=== PATIENT | female | born 1940 | race Asian ===

== ENCOUNTER 2022-06-26 04:02 | Day surgery (SDC) | payer OTHER ==
[2022-06-22 10:57] VITALS: BMI 20.7
[~2022-06-26 04:02] MED LIST: LIDOCAINE 1% P/F 10 MG/ML VIAL PNB ONE
[2022-06-26] MEDS ORDERED: LIDOCAINE HCL/PF 1% SDV 5ML VIAL ONE ×2 (08:03→08:04)
[2022-06-26] MEDS ORDERED: BUPIVACAINE HCL/PF 0.25% (2.5MG/ML) 10 ML VIAL ONE (08:03)
[2022-06-26] MEDS ORDERED: BETAMET ACET/BETAMET NA PH 30 MG/5 ML VIAL ONE (08:03)
[2022-06-26] MEDS ORDERED: DEXAMETHASONE SOD PHOSPHATE 10 MG/1 ML VIAL ONE (09:54)
[2022-06-26] MEDS ORDERED: DEXAMETHASONE SOD PHOSPHATE 10 MG/1 ML VIAL IVPUSH ONE (09:58)
[2022-06-26] MEDS ORDERED: BUPIVACAINE HCL/PF 0.25% (2.5MG/ML) 10 ML VIAL IJ ONE (09:58)
[2022-06-26] MEDS ORDERED: LIDOCAINE 1% P/F 10 MG/ML VIAL PNB ONE (09:58)
[2022-06-26] MEDS ORDERED: IOHEXOL 180 MG/1 ML ML IJ ONE (09:58)
[2022-06-26] MEDS ORDERED: LIDOCAINE HCL/PF 2% SDV 5ML VIAL ONE ×3 (10:29→11:01)
[2022-06-26 12:21] VITALS: RESP 17
[2022-06-26 12:48] VITALS: BP 151/64; PULSE 88; TEMP 98.3
== END 2022-06-26 11:58 | disposition home or self-care (01) ==
LOC: JASU-SURG 04:02
PROVIDERS: ATTEND Physical Medicine & Rehabilitation
PROC: 3E0R3BZ Introduction of Anesthetic Agent into Spinal Canal, Percutaneous Approach (ICD-10-PCS; 2022-06-26)
PROC: 3E0R33Z Introduction of Anti-inflammatory into Spinal Canal, Percutaneous Approach (ICD-10-PCS; principal; 2022-06-26 09:30)
DX: M54.16 Radiculopathy, lumbar region (principal); M54.50 Low back pain, unspecified
CPT/HCPCS: 76000-TC-FY; J1100

== ENCOUNTER 2023-06-05 11:46 | Observation (INO) | payer OTHER ==
[2023-06-05 12:00] VITALS: BMI 21.1
[2023-06-05] MEDS ORDERED: ACETAMINOPHEN INJECTION 100 ML IVPB ONE (13:04)
[2023-06-05] MEDS ORDERED: METOCLOPRAMIDE HCL INJECTION 10 MG/2 ML VIAL ONE (13:04)
[2023-06-05 13:14] LABS: BASO % 0.6 % (0-2.0); EOS % 0.8 % (0-4.5); HEMATOCRIT 32.4 % (32.4-45.2); MCH 30.4 pg (25.7-33.7); MEAN CELL VOLUME 89.3 fl (80-96); MEAN PLT VOLUME 6.9 fl (7.5-11.1); NEUT % 61.6 % (42.8-82.8); PLATELET COUNT 320 10^3/uL (134-434); RBC 3.63 M/mm3 (3.60-5.2); RDW 15.4 % (11.6-15.6); WHITE BLOOD COUNT 6.3 K/mm3 (4.0-10.0)
[2023-06-05] MEDS: SODIUM CHLORIDE 0.9% 500 ML INFUS.BAG IV ONE (13:15)
[2023-06-05] MEDS: ACETAMINOPHEN 1000 MG/100 ML BAG IVPB ONE (13:15)
[2023-06-05 13:34] LABS: POTASSIUM 4.7 mmol/L (3.5-5.1)
[2023-06-05 13:37] LABS: CALCIUM 8.4 mg/dL (8.5-10.1)
[2023-06-05 13:38] LABS: ALBUMIN 3.1 g/dl (3.4-5.0)
[2023-06-05 13:39] LABS: MAGNESIUM 2.5 mg/dL (1.8-2.4)
[2023-06-05 13:40] LABS: CREATININE 0.6 mg/dL (0.55-1.3)
[2023-06-05 13:41] LABS: PHOSPHOROUS 2.6 mg/dL (2.5-4.9)
[2023-06-05 13:42] LABS: BILIRUBIN,TOTAL 0.5 mg/dL (0.2-1)
[2023-06-05] MEDS: ONDANSETRON 4 MG/2 ML VIAL IVPUSH ONE (13:44)
[2023-06-05] MEDS: METOCLOPRAMIDE HCL INJECTION 10 MG/2 ML VIAL IVPB ONE (13:44)
[2023-06-05 13:54] LABS: EPI CELLS 8 /uL (0-25.1); HYALINE CASTS 0 /uL (0-3.1); URINE APPEARANCE CLOUDY; URINE BACTERIA 3423 /uL (0-1359); URINE BILIRUBIN NEGATIVE (NEGATIVE); URINE COLOR YELLOW; URINE GLUCOSE (UA) NEGATIVE (NEGATIVE); URINE KETONE TRACE (NEGATIVE); URINE LEUK ESTERASE 2+ (NEGATIVE); URINE NITRITE POSITIVE (NEGATIVE); URINE PROTEIN NEGATIVE (NEGATIVE); URINE RBC 158 /uL (0-23.9); URINE WBC 2527 /uL (0-25.8)
[2023-06-05] MEDS ORDERED: CEFTRIAXONE 1 GM/50 ML BAG ONE (14:16)
[2023-06-05] MEDS: CEFTRIAXONE 1,000 MG in DEXTROSE 5%-WATER - 50 ML IVPB ONE (14:21)
[2023-06-05] MEDS: morphine SULFATE 4 MG/ML VIAL IVPUSH ONE (16:15)
[2023-06-05] MEDS ORDERED: ALBUTEROL SO4 0.083% IH SOL 2.5 MG/3 ML VIAL.NEB. NEB PRN (18:16)
[2023-06-05] MEDS ORDERED: ACETAMINOPHEN 1000 MG/100 ML BAG IVPB PRN (18:23)
[2023-06-05] MEDS ORDERED: PANTOPRAZOLE SODIUM 40 MG/100 ML BAG IVPB ONE (18:29)
[2023-06-05] MEDS: DEXAMETHASONE SOD PHOSPHATE 10 MG/1 ML VIAL IM ONE (18:36)
[2023-06-05] MEDS: PANTOPRAZOLE SODIUM 40 MG VIAL IVPUSH SCH (18:36)
[2023-06-05] MEDS: D5-1/2NS+20 MEQ KCL - 20 MEQ/1,000 ML INFUS.BAG IV SCH (19:03)
[2023-06-05] MEDS ORDERED: METOCLOPRAMIDE HCL INJECTION 10 MG/2 ML VIAL IVPUSH PRN (20:00)
[2023-06-05] MEDS ORDERED: oxyCODONE HCL 5 MG TABLET ONE (21:56)
[2023-06-05] MEDS: oxyCODONE HCL 5 MG TABLET PO PRN (21:59)
[2023-06-05] MEDS ORDERED: PATIENT'S OWN MEDICATION (NON-FORMULARY) (Cyclosporine [Restasis] 1 EACH Droperette) OP SCH (22:00)
[2023-06-05] MEDS ORDERED: ATORVASTATIN CA 40 MG TABLET (FP) ONE (22:01)
[2023-06-05] MEDS ORDERED: clonazePAM 0.5 MG TABLET ONE (22:01)
[2023-06-05] MEDS: VERAPAMIL HCL 40 MG TABLET PO SCH (22:34)
[2023-06-05] MEDS: clonazePAM 0.5 MG TABLET PO SCH (22:34)
[2023-06-05] MEDS: ATORVASTATIN CA 40 MG TABLET (FP) PO SCH (22:34)
[2023-06-05] MEDS: DULoxetine HCL 20 MG CAPSULE.DR PO SCH (22:34)
[2023-06-06] MEDS ORDERED: oxyCODONE HCL 5 MG TABLET ONE ×2 (04:05→04:48)
[2023-06-06 05:54] LABS: BASO % 0.3 % (0-2.0); HEMATOCRIT 30.9 % (32.4-45.2); HEMOGLOBIN 10.1 GM/dL (10.7-15.3); LYMPH % 13.1 % (8-40); MCH 29.8 pg (25.7-33.7); MCHC 32.7 g/dl (32.0-36.0); MEAN CELL VOLUME 90.9 fl (80-96); MEAN PLT VOLUME 7.3 fl (7.5-11.1); MONO % 3.1 % (3.8-10.2); NEUT % 83.5 % (42.8-82.8); PLATELET COUNT 310 10^3/uL (134-434); WHITE BLOOD COUNT 4.2 K/mm3 (4.0-10.0)
[2023-06-06 06:29] LABS: MAGNESIUM 2.2 mg/dL (1.8-2.4)
[2023-06-06] MEDS ORDERED: ENOXAPARIN NA (PORCINE) 30 MG/0.3 ML DISP.SYRIN SQ ONE (09:42)
[2023-06-06] MEDS ORDERED: clonazePAM 0.5 MG TABLET ONE (09:42)
[2023-06-06] MEDS ORDERED: ASPIRIN COATED 81 MG TABLET.EC ONE (09:42)
[2023-06-06] MEDS ORDERED: CEFTRIAXONE 1 GM/50 ML BAG ONE (09:43)
[2023-06-06] MEDS ORDERED: PANTOPRAZOLE SODIUM 40 MG VIAL ONE (09:43)
[2023-06-06] MEDS ORDERED: metoPROLOL SUCCINATE 25 MG TAB.SR.24H (FP) PO SCH (10:00)
[2023-06-06] MEDS ORDERED: LOSARTAN POTASSIUM 50 MG TABLET PO SCH (10:00)
[2023-06-06] MEDS ORDERED: DULOXETINE HCL 20 MG PO SCH (10:00)
[2023-06-06] MEDS: ASPIRIN COATED 81 MG TABLET.EC PO SCH (10:23)
[2023-06-06] MEDS: ENOXAPARIN NA (PORCINE) 30 MG/0.3 ML DISP.SYRIN SQ SCH (10:24)
[2023-06-06] MEDS: CEFTRIAXONE 1 GM in DEXTROSE 5%-WATER - 50 ML IVPB SCH (10:25)
[2023-06-06] MEDS: prednisoLONE ACETATE 1% OPHTH SUSP 5 ML BOTTLE OD SCH (12:22)
[2023-06-06] MEDS: FLUTICASONE/UMECLIDIN/VILANTER(100-62.5-25 TRELEGY ELLIPTA) INAHLER IH SCH (12:23)
[2023-06-06] MEDS: EZETIMIBE 10 MG TABLET (FP) PO SCH (12:23)
[2023-06-06] MEDS ORDERED: ONDANSETRON *ODT* 4 MG TABLET SL PRN (14:26)
[2023-06-06] MEDS ORDERED: METOCLOPRAMIDE HCL INJECTION 10 MG/2 ML VIAL ONE (14:47)
[2023-06-06] MEDS ORDERED: MAGNESIUM SULFATE IN WATER 2 GM/50 ML IVPB IVPB ONE (14:48)
[2023-06-06] MEDS: MAGNESIUM SULF 50% (8.12 MEQ/2 ML-1 GM VIAL) IVPB ONE (16:04)
[2023-06-06] MEDS ORDERED: KETOROLAC TROMETHAMINE 30 MG/1 ML VIAL IVPUSH PRN (16:36)
[2023-06-06] MEDS: QUEtiapine FUMARATE 25 MG TABLET PO SCH (21:38)
[2023-06-06] MEDS: VALPROATE SODIUM INJECTION 500 MG in SODIUM CHLORIDE 100 ML IVPB SCH (21:56)
[2023-06-06] MEDS ORDERED: QUEtiapine FUMARATE 25 MG TABLET PO SCH (22:00)
[2023-06-06] MEDS ORDERED: VALPROATE SODIUM 500 MG/5 ML VIAL IVPB SCH (22:00)
[2023-06-07 06:56] VITALS: BP 143/80; PULSE 104; RESP 20; TEMP 98.1
[2023-06-07 08:31] LABS: HEMATOCRIT 32.1 % (32.4-45.2); HEMOGLOBIN 10.8 GM/dL (10.7-15.3); MCH 30.1 pg (25.7-33.7); MCHC 33.6 g/dl (32.0-36.0); MEAN CELL VOLUME 89.6 fl (80-96); MEAN PLT VOLUME 7.1 fl (7.5-11.1); PLATELET COUNT 324 10^3/uL (134-434); RBC 3.58 M/mm3 (3.60-5.2); RDW 15.2 % (11.6-15.6); WHITE BLOOD COUNT 7.8 K/mm3 (4.0-10.0)
[2023-06-07 09:02] LABS: POTASSIUM 3.9 mmol/L (3.5-5.1)
[2023-06-07 09:09] LABS: CALCIUM 8.6 mg/dL (8.5-10.1)
[2023-06-07 09:10] LABS: ALBUMIN 3.2 g/dl (3.4-5.0); BLOOD UREA NITROGEN 11.8 mg/dL (7-18); MAGNESIUM 2.1 mg/dL (1.8-2.4)
[2023-06-07 09:13] LABS: CREATININE 0.7 mg/dL (0.55-1.3)
[2023-06-07 09:14] LABS: TOT PROT 6.2 g/dl (6.4-8.2)
[2023-06-07 09:15] LABS: BILIRUBIN,TOTAL 0.3 mg/dL (0.2-1)
== END 2023-06-07 14:37 | disposition home or self-care (01) ==
LOC: JER 11:46 → UNDOADMOB 16:01 → JERBED 16:01 → INTOOBSV 18:16 → OBSVTOIN 18:16 → J5S 06-06 15:27 → JERBED 06-06 15:27 → J5S 06-06 16:22
PROVIDERS: ADMIT Family Medicine; ATTEND Family Medicine
PROC: 3E033NZ Introduction of Analgesics, Hypnotics, Sedatives into Peripheral Vein, Percutaneous Approach (ICD-10-PCS; principal; 2023-06-06)
PROC: 3E03329 Introduction of Other Anti-infective into Peripheral Vein, Percutaneous Approach (ICD-10-PCS; 2023-06-06)
PROC: 3E023GC Introduction of Other Therapeutic Substance into Muscle, Percutaneous Approach (ICD-10-PCS; 2023-06-06)
PROC: 3E033GC Introduction of Other Therapeutic Substance into Peripheral Vein, Percutaneous Approach (ICD-10-PCS; 2023-06-06)
PROC: 3E0337Z Introduction of Electrolytic and Water Balance Substance into Peripheral Vein, Percutaneous Approach (ICD-10-PCS; 2023-06-06)
DX: G43.911 Migraine, unspecified, intractable, with status migrainosus (principal); N32.81 Overactive bladder; F41.9 Anxiety disorder, unspecified; R26.2 Difficulty in walking, not elsewhere classified; Z87.891 Personal history of nicotine dependence; J44.9 Chronic obstructive pulmonary disease, unspecified; E78.00 Pure hypercholesterolemia, unspecified; I87.2 Venous insufficiency (chronic) (peripheral); M54.16 Radiculopathy, lumbar region
CPT/HCPCS: 0241U-QW; 36415; 70450-TC; 76705-TC; 80053; 81003; 82962; 83605; 83690; 83735; 84100; 84443; 84484; 85025; 85027; 86140; 87086; 93005; 93010; 96361; 96365; 96366; 96372; 96375; 99285-25; G0378; J0131; J1100

== ENCOUNTER 2024-02-28 14:25 | Inpatient (IN) | payer OTHER ==
[2024-02-28 16:15] LABS: BASO % 0.3 % (0-2.0); EOS % 0.7 % (0-4.5); HEMATOCRIT 34.6 % (32.4-45.2); HEMOGLOBIN 11.5 GM/dL (10.7-15.3); LYMPH % 17.9 % (8-40); MCHC 33.1 g/dl (32.0-36.0); MEAN CELL VOLUME 87.6 fl (80-96); MEAN PLT VOLUME 7.5 fl (7.5-11.1); MONO % 8.3 % (3.8-10.2); NEUT % 72.8 % (42.8-82.8); PLATELET COUNT 273 10^3/uL (134-434); RBC 3.95 M/mm3 (3.60-5.2); RDW 16.1 % (11.6-15.6); WHITE BLOOD COUNT 6.2 K/mm3 (4.0-10.0)
[2024-02-28 16:30] LABS: ALBUMIN 3.6 g/dl (3.4-5.0); BLOOD UREA NITROGEN 6.6 mg/dL (7-18); CALCIUM 9.3 mg/dL (8.5-10.1)
[2024-02-28 16:31] LABS: MAGNESIUM 2.3 mg/dL (1.8-2.4)
[2024-02-28 16:33] LABS: CREATININE 0.6 mg/dL (0.55-1.3)
[2024-02-28 16:35] LABS: BILIRUBIN,TOTAL 0.5 mg/dL (0.2-1); INR 0.99 (0.83-1.09); PROTHROMBIN TIME (PATIENT) 11.4 SEC (9.7-13.0); TOT PROT 6.7 g/dl (6.4-8.2)
[2024-02-28 17:12] LABS: PH,URINE 6.5 (5.0-8.0); URINE APPEARANCE CLEAR; URINE BILIRUBIN NEGATIVE (NEGATIVE); URINE COLOR YELLOW; URINE GLUCOSE (UA) NEGATIVE (NEGATIVE); URINE KETONE NEGATIVE (NEGATIVE); URINE LEUK ESTERASE 2+ (NEGATIVE); URINE NITRITE NEGATIVE (NEGATIVE); URINE PROTEIN NEGATIVE (NEGATIVE); URINE UROBILINOGEN 0.2 mg/dL (0.2-1.0)
[2024-02-28 17:30] LABS: EPI CELLS 5.2 /uL (0-25.1); HYALINE CASTS 0.13 /uL (0-3.1); URINE RBC 17.8 /uL (0-23.9); URINE WBC 48.8 /uL (0-25.8)
[2024-02-28] MEDS ORDERED: ALBUTEROL SULFATE 2 MG/5 ML SOLUTION PO PRN (18:21)
[2024-02-28] MEDS ORDERED: ALBUTEROL SO4 0.083% IH SOL 2.5 MG/3 ML VIAL.NEB. NEB PRN (18:21)
[2024-02-28] MEDS ORDERED: ALBUTEROL SULFATE 90 MCG IH PRN (18:21)
[2024-02-28] MEDS ORDERED: POLYETHYLENE GLYCOL 3350 255 GM BTL PO PRN (18:21)
[2024-02-28] MEDS: PATIENT'S OWN MEDICATION (NON-FORMULARY) (Denosumab 60 MG/ML Disp.Syrin) SQ SCH (20:14)
[2024-02-28] MEDS ORDERED: CEFTRIAXONE 1 G/50 ML PREMIX 50 ML IVPB ONE (20:15)
[2024-02-28] MEDS: CEFTRIAXONE 1,000 MG in DEXTROSE 5%-WATER - 50 ML IVPB ONE (20:26)
[2024-02-28] MEDS ORDERED: ATORVASTATIN CA 40 MG TABLET (FP) ONE (21:21)
[2024-02-28] MEDS ORDERED: PANTOPRAZOLE 40 MG TABLET PO ONE (21:21)
[2024-02-28] MEDS ORDERED: clonazePAM 0.5 MG TABLET ONE (21:21)
[2024-02-28] MEDS ORDERED: LOSARTAN POTASSIUM 50 MG TABLET ONE (21:21)
[2024-02-28] MEDS: LOSARTAN POTASSIUM 50 MG TABLET PO SCH (21:44)
[2024-02-28] MEDS: PATIENT'S OWN MEDICATION (NON-FORMULARY) (Cyclosporine [Restasis] 1 EACH Droperette) OU SCH (21:44)
[2024-02-28] MEDS: ATORVASTATIN CA 40 MG TABLET (FP) PO SCH (21:44)
[2024-02-28] MEDS: clonazePAM 0.5 MG TABLET PO SCH (21:44)
[2024-02-28] MEDS: PANTOPRAZOLE 40 MG TABLET PO ONE (21:44)
[2024-02-28] MEDS ORDERED: FLUTICASONE/UMECLIDIN/VILANTER(100-62.5-25 TRELEGY ELLIPTA) INAHLER IH SCH (22:53)
[2024-02-29] MEDS: FLUTICASONE/UMECLIDIN/VILANTER(100-62.5-25 TRELEGY ELLIPTA) INAHLER IH SCH (00:33)
[2024-02-29] MEDS: ACETAMINOPHEN 1000 MG/100 ML BAG IVPB ONE (03:48)
[2024-02-29] MEDS ORDERED: FLUTICASONE/UMECLIDIN/VILANTER(100-62.5-25 TRELEGY ELLIPTA) INAHLER IH SCH (10:00)
[2024-02-29] MEDS: ROFLUMILAST 500 MCG TABLET PO SCH (11:07)
[2024-02-29] MEDS: CALCIUM 500MG/VIT-D 200 UNITS COMBO TABLET (FP) PO SCH (11:08)
[2024-02-29] MEDS: metoPROLOL SUCCINATE 25 MG TAB.SR.24H (FP) PO SCH (11:08)
[2024-02-29] MEDS: EZETIMIBE 10 MG TABLET (FP) PO SCH (11:08)
[2024-02-29] MEDS: LOPERAMIDE HCL 2 MG CAPSULE PO SCH (11:08)
[2024-02-29] MEDS ORDERED: LOPERAMIDE HCL 2 MG CAPSULE PO PRN ×2 (14:27→18:27)
[2024-02-29] MEDS ORDERED: GENTAMICIN SO4 80 MG/2 ML VIAL ONE (14:34)
[2024-02-29] MEDS ORDERED: THROMBIN (BOVINE) 5,000 UNIT VIAL TP ONE (14:35)
[2024-02-29] MEDS ORDERED: PROPOFOL 40 ML ONE ×2 (14:35→16:49)
[2024-02-29] MEDS ORDERED: PROPOFOL 20 ML ONE ×2 (14:37→16:00)
[2024-02-29] MEDS ORDERED: SUCCINYLCHOLINE CHLORIDE 200 MG/10 ML SYRINGE ONE (14:43)
[2024-02-29] MEDS ORDERED: MIDAZOLAM HCL 2 MG/2 ML SINGLE DOSE VIAL ONE (14:53)
[2024-02-29] MEDS ORDERED: HYDROmorphone HCl 2 MG/ML VIAL ONE (15:46)
[2024-02-29] MEDS ORDERED: DEXMEDETOMIDINE HCL 200 MCG/2 ML IVPB ONE (16:03)
[2024-02-29] MEDS: ceFAZolin SODIUM 1 GM VIAL IVPB ONE (16:13)
[2024-02-29] MEDS: LIDOCAINE 1%/EPI 1:100000 (20 ML MULTI DOSE VIAL) INF ONE (16:40)
[2024-02-29] MEDS ORDERED: ONDANSETRON 4 MG/2 ML VIAL IVPUSH PRN (18:07)
[2024-02-29] MEDS ORDERED: ALBUTEROL SULFATE 2 MG/5 ML SOLUTION PO PRN (18:27)
[2024-02-29] MEDS ORDERED: ALBUTEROL SO4 0.083% IH SOL 2.5 MG/3 ML VIAL.NEB. NEB PRN (18:27)
[2024-02-29] MEDS ORDERED: POLYETHYLENE GLYCOL 3350 255 GM BTL PO PRN (18:27)
[2024-02-29] MEDS: SODIUM CHLORIDE 1,000 ML IV SCH (19:30)
[2024-02-29] MEDS ORDERED: POLYETHYLENE GLYCOL (HEALTHYLAX) 3350 17 GM PACKET PO PRN (19:38)
[2024-02-29] MEDS: ACETAMINOPHEN 1000 MG/100 ML BAG IVPB PRN (20:00)
[2024-02-29] MEDS: LOSARTAN POTASSIUM 50 MG TABLET PO SCH (21:13)
[2024-02-29] MEDS: ATORVASTATIN CA 40 MG TABLET (FP) PO SCH (21:13)
[2024-02-29] MEDS: clonazePAM 0.5 MG TABLET PO SCH (21:13)
[2024-02-29] MEDS: CHLORHEXIDINE GLUCONATE 4% CLEANSER FOR DECOLONIZATION TP SCH (21:14)
[2024-02-29] MEDS: MUPIROCIN 2% TOPICAL OINTMENT FOR DECOLONIZATION NS SCH (21:38)
[2024-02-29] MEDS: CEFAZOLIN 2 GM/D5W 2 GM/50 ML ML IVPB SCH (21:39)
[2024-02-29] MEDS: PATIENT'S OWN MEDICATION (NON-FORMULARY) (Cyclosporine [Restasis] 1 EACH) OU SCH (21:39)
[2024-02-29] MEDS ORDERED: ESOMEPRAZOLE MAGNESIUM 80 MG PO SCH (22:00)
[2024-03-01] MEDS: oxyCODONE HCL 5 MG TABLET PO PRN ×2 (02:29→10:07)
[2024-03-01] MEDS: FENTANYL CITRATE/PF 50 MCG/ML VIAL IVPUSH PRN (07:46)
[2024-03-01] MEDS: PANTOPRAZOLE 40 MG TABLET PO SCH (09:32)
[2024-03-01] MEDS: metoPROLOL SUCCINATE 25 MG TAB.SR.24H (FP) PO SCH (09:32)
[2024-03-01] MEDS: NITROFURANTOIN MONOHYD/M-CRYST 100 MG CAPSULE PO SCH (09:33)
[2024-03-01] MEDS: ROFLUMILAST 500 MCG TABLET PO SCH (09:33)
[2024-03-01] MEDS: CALCIUM 500MG/VIT-D 200 UNITS COMBO TABLET (FP) PO SCH (09:34)
[2024-03-01] MEDS: FLUTICASONE/UMECLIDIN/VILANTER(100-62.5-25 TRELEGY ELLIPTA) INAHLER IH SCH (09:35)
[2024-03-01] MEDS: ALPRAZolam 0.25 MG TABLET PO ONE (11:30)
[2024-03-01] MEDS: PATIENT'S OWN MEDICATION (NON-FORMULARY) (Esomeprazole Magnesium [Nexium 24hr] 20 MG Table PO SCH (12:58)
[2024-03-01] MEDS: [UNRECOGNIZED DRUG - OTHER] PO SCH (12:59)
[2024-03-01] MEDS: AMYLASE PO SCH (12:59)
[2024-03-01] MEDS: PATIENT'S OWN MEDICATION (NON-FORMULARY) (Icosapent Ethyl [Vascepa] 1 GM Capsule) PO SCH (12:59)
[2024-03-01] MEDS: LIPASE PO SCH (12:59)
[2024-03-01] MEDS: PROTEASE PO SCH (12:59)
[2024-03-01] MEDS: PATIENT'S OWN MEDICATION (NON-FORMULARY) (Raloxifene Hcl [Raloxifene Hcl] 60 MG Tablet) PO SCH (13:00)
[2024-03-01] MEDS: PATIENT'S OWN MEDICATION (NON-FORMULARY) (Vibegron [Gemtesa] 75 MG Tablet) PO SCH (13:01)
[2024-03-01] MEDS: DEXAMETHASONE SOD PHOSPHATE 10 MG/1 ML VIAL IVPUSH ONE (13:02)
[2024-03-01] MEDS: LACTATED RINGERS SOLUTION 1,000 ML IV SCH ×2 (13:03)
[2024-03-01] MEDS: HYDROmorphone HCL CARPU-JECT 2 MG/1 ML DISP.SYRIN IVPUSH PRN (14:00)
[2024-03-01] MEDS ORDERED: AMINO ACID 8 % IN D14W 1,000 ML IV.SOLN IV SCH (18:45)
[2024-03-01] MEDS: AMINO ACIDS 4.25%/D5W 1,000 ML IV SCH (19:37)
[2024-03-01] MEDS: CEFTRIAXONE 1 G/50 ML PREMIX 50 ML IVPB SCH (23:03)
[2024-03-02] MEDS: DEXMEDETOMIDINE PREMIX 400 MCG/100 ML BAG IVPB SCH (00:29)
[2024-03-02 07:14] LABS: BASO % 0.3 % (0-2.0); EOS % 0.1 % (0-4.5); HEMATOCRIT 28.6 % (32.4-45.2); HEMOGLOBIN 9.4 GM/dL (10.7-15.3); LYMPH % 10.5 % (8-40); MCH 29.1 pg (25.7-33.7); MCHC 32.9 g/dl (32.0-36.0); MEAN CELL VOLUME 88.5 fl (80-96); MEAN PLT VOLUME 7.4 fl (7.5-11.1); MONO % 9.1 % (3.8-10.2); PLATELET COUNT 225 10^3/uL (134-434); RBC 3.23 M/mm3 (3.60-5.2); RDW 15.9 % (11.6-15.6); WHITE BLOOD COUNT 9.5 K/mm3 (4.0-10.0)
[2024-03-02 07:30] LABS: POTASSIUM 3.4 mmol/L (3.5-5.1)
[2024-03-02 07:33] LABS: BLOOD UREA NITROGEN 11.6 mg/dL (7-18); MAGNESIUM 1.6 mg/dL (1.8-2.4)
[2024-03-02 07:36] LABS: CREATININE 0.4 mg/dL (0.55-1.3); PHOSPHOROUS 1.3 mg/dL (2.5-4.9)
[2024-03-02 07:37] LABS: BILIRUBIN,TOTAL 0.4 mg/dL (0.2-1); TOT PROT 5.1 g/dl (6.4-8.2)
[2024-03-02 08:04] LABS: ALBUMIN 2.5 g/dl (3.4-5.0); CALCIUM 7.3 mg/dL (8.5-10.1)
[2024-03-02] MEDS: MAGNESIUM 2GM/50ML STERILE WATER IVPB IVPB ONE (09:23)
[2024-03-02] MEDS ORDERED: LORazepam 2 MG/ML SDV VIAL IVPUSH SCH (09:30)
[2024-03-02] MEDS ORDERED: POTASSIUM CHLORIDE ORAL LIQUID 20 MEQ/15 ML PO ONE (09:30)
[2024-03-02] MEDS: OMEGA-3 ACID ETHYL ESTERS (FATTY-ACIDS) 1 GM CAPSULE (FP) PO SCH (09:36)
[2024-03-02] MEDS: EZETIMIBE 10 MG TABLET (FP) PO SCH (09:37)
[2024-03-02] MEDS ORDERED: MAGNESIUM 1GM/D5W 100ML - 100 ML IVPB IVPB ONE (10:00)
[2024-03-02] MEDS: POTASSIUM PHOSPHATE 30 MM in SODIUM CHLORIDE 250 ML IVPB ONE (11:09)
[2024-03-02] MEDS: BENZOCAINE/MENTH/CETYLPYRD CL 1 EACH LOZENGE MM PRN (15:44)
[2024-03-02] MEDS: guaiFENesin/D-METHORPHAN HB 10 ML UNIT-DOSE CUPS PO PRN (18:05)
[2024-03-02] MEDS: LORazepam 2 MG/ML SDV VIAL IVPUSH PRN (18:25)
[2024-03-03 06:58] LABS: BASO % 0.4 % (0-2.0); EOS % 0.3 % (0-4.5); HEMATOCRIT 28.7 % (32.4-45.2); HEMOGLOBIN 9.6 GM/dL (10.7-15.3); LYMPH % 16.6 % (8-40); MCHC 33.3 g/dl (32.0-36.0); MEAN CELL VOLUME 87.2 fl (80-96); MEAN PLT VOLUME 7.9 fl (7.5-11.1); MONO % 11.8 % (3.8-10.2); NEUT % 70.9 % (42.8-82.8); PLATELET COUNT 246 10^3/uL (134-434); RBC 3.29 M/mm3 (3.60-5.2); RDW 15.9 % (11.6-15.6); WHITE BLOOD COUNT 7.5 K/mm3 (4.0-10.0)
[2024-03-03 07:07] LABS: CHLORIDE 104 mmol/L (98-107); POTASSIUM 3.6 mmol/L (3.5-5.1); SODIUM 134 mmol/L (136-145)
[2024-03-03 07:13] LABS: CALCIUM 7.9 mg/dL (8.5-10.1); GLUCOSE,RANDOM 125 mg/dL (74-106)
[2024-03-03 07:14] LABS: ALBUMIN 2.5 g/dl (3.4-5.0); ANION GAP 5 mmol/L (4-13); BLOOD UREA NITROGEN 16.8 mg/dL (7-18); CO2 26 mmol/L (21-32); MAGNESIUM 2.1 mg/dL (1.8-2.4)
[2024-03-03 07:16] LABS: CREATININE 0.3 mg/dL (0.55-1.3)
[2024-03-03 07:17] LABS: SGOT/AST 14 U/L (15-37); SGPT/ALT 8 U/L (13-61)
[2024-03-03 07:18] LABS: BILIRUBIN,TOTAL 0.4 mg/dL (0.2-1); TOT PROT 5.4 g/dl (6.4-8.2)
[2024-03-03 07:19] LABS: ALK PHOS 56 U/L (45-117)
[2024-03-03 07:30] LABS: PHOSPHOROUS 1.1 mg/dL (2.5-4.9)
[2024-03-03] MEDS: NAPH,MB-DB/K PH,MBDB POWDER PACKET PO SCH (09:36)
[2024-03-03] MEDS: NYSTATIN 500,000 UNITS/5 ML SUSPENSION PO SCH (12:03)
[2024-03-03] MEDS: POLYETHYLENE GLYCOL (HEALTHYLAX) 3350 17 GM PACKET PO SCH (12:03)
[2024-03-03] MEDS: ACETAMINOPHEN 325 MG TABLET (FP) PO ONE (15:40)
[2024-03-03] MEDS: SENNOSIDES 8.6MG TABLET (FP) PO SCH (23:00)
[2024-03-04] MEDS: VITAMINS A AND D TOPICAL OINTMENT TP SCH (00:08)
[2024-03-04 07:31] LABS: BASO % 0.6 % (0-2.0); EOS % 0.7 % (0-4.5); HEMATOCRIT 29.7 % (32.4-45.2); HEMOGLOBIN 10.1 GM/dL (10.7-15.3); LYMPH % 27.3 % (8-40); MCH 29.4 pg (25.7-33.7); MCHC 33.8 g/dl (32.0-36.0); MEAN CELL VOLUME 86.9 fl (80-96); MEAN PLT VOLUME 7.7 fl (7.5-11.1); MONO % 8.6 % (3.8-10.2); NEUT % 62.8 % (42.8-82.8); PLATELET COUNT 262 10^3/uL (134-434); RBC 3.42 M/mm3 (3.60-5.2); RDW 15.5 % (11.6-15.6); WHITE BLOOD COUNT 6.7 K/mm3 (4.0-10.0)
[2024-03-04 07:51] LABS: POTASSIUM 3.9 mmol/L (3.5-5.1)
[2024-03-04 07:59] LABS: ALBUMIN 2.5 g/dl (3.4-5.0); BLOOD UREA NITROGEN 19.8 mg/dL (7-18)
[2024-03-04 08:03] LABS: BILIRUBIN,TOTAL 0.3 mg/dL (0.2-1); CREATININE 0.5 mg/dL (0.55-1.3); PHOSPHOROUS 1.5 mg/dL (2.5-4.9); TOT PROT 5.4 g/dl (6.4-8.2)
[2024-03-04] MEDS ORDERED: SENNOSIDES 8.6MG TABLET (FP) PO PRN (17:07)
[2024-03-04 17:44] VITALS: BMI 19.4
[2024-03-04] MEDS: AMINO ACIDS 4.25%/D5W 1,000 ML IV SCH (17:53)
[2024-03-04] MEDS: SODIUM PHOSPHATE - 10 MM in SODIUM CHLORIDE 250 ML IVPB ONE (20:09)
[2024-03-05] MEDS: NITROFURANTOIN MONOHYD/M-CRYST 100 MG CAPSULE PO SCH (00:09)
[2024-03-05] MEDS: FLUTICASONE PROP 0.05% 16 GM NASAL SPRAY NS SCH (11:20)
[2024-03-06 08:03] LABS: POTASSIUM 4.2 mmol/L (3.5-5.1)
[2024-03-06 08:07] LABS: ALBUMIN 2.6 g/dl (3.4-5.0); BLOOD UREA NITROGEN 15.4 mg/dL (7-18); MAGNESIUM 1.9 mg/dL (1.8-2.4)
[2024-03-06 08:10] LABS: CREATININE 0.5 mg/dL (0.55-1.3); PHOSPHOROUS 3.1 mg/dL (2.5-4.9)
[2024-03-06 08:11] LABS: BILIRUBIN,TOTAL 0.4 mg/dL (0.2-1); TOT PROT 5.6 g/dl (6.4-8.2)
[2024-03-06] MEDS: guaiFENesin 200 MG/10 ML 10 ML UNIT-DOSE CUPS PO PRN (17:22)
[2024-03-06] MEDS: LIDOCAINE 4% PATCH TP SCH (17:23)
[2024-03-06] MEDS: LIDOCAINE PATCH REMOVAL MC SCH (22:39)
[2024-03-07] MEDS ORDERED: ONDANSETRON 4 MG/2 ML VIAL IVPUSH PRN (09:56)
[2024-03-07] MEDS ORDERED: ALBUTEROL SO4 0.083% IH SOL 2.5 MG/3 ML VIAL.NEB. NEB PRN (09:56)
[2024-03-07] MEDS ORDERED: BENZOCAINE/MENTH/CETYLPYRD CL 1 EACH LOZENGE MM PRN (09:56)
[2024-03-07] MEDS ORDERED: LOPERAMIDE HCL 2 MG CAPSULE PO PRN (09:56)
[2024-03-07] MEDS ORDERED: guaiFENesin/D-METHORPHAN HB 10 ML UNIT-DOSE CUPS PO PRN (09:56)
[2024-03-07] MEDS ORDERED: PATIENT'S OWN MEDICATION (NON-FORMULARY) (Vibegron [Gemtesa] 75 MG) PO SCH (10:00)
[2024-03-07] MEDS ORDERED: PATIENT'S OWN MEDICATION (NON-FORMULARY) (Raloxifene Hcl [Raloxifene Hcl] 60 MG) PO SCH (10:00)
[2024-03-07] MEDS: LIDOCAINE 4% PATCH TP SCH (10:27)
[2024-03-07] MEDS: CALCIUM 500MG/VIT-D 200 UNITS COMBO TABLET (FP) PO SCH (11:23)
[2024-03-07] MEDS: POLYETHYLENE GLYCOL (HEALTHYLAX) 3350 17 GM PACKET PO SCH (11:23)
[2024-03-07] MEDS: ENOXAPARIN NA (PORCINE) 60 MG/0.6 ML DISP.SYRIN SQ SCH (11:29)
[2024-03-07] MEDS: PROTEASE PO SCH (11:35)
[2024-03-07] MEDS: [UNRECOGNIZED DRUG - OTHER] PO SCH (11:35)
[2024-03-07] MEDS: AMYLASE PO SCH (11:35)
[2024-03-07] MEDS: LIPASE PO SCH (11:35)
[2024-03-07] MEDS: PATIENT'S OWN MEDICATION (NON-FORMULARY) (Vibegron [Gemtesa] 75 MG) PO SCH (11:35)
[2024-03-07] MEDS: PATIENT'S OWN MEDICATION (NON-FORMULARY) (Raloxifene Hcl [Raloxifene Hcl] 60 MG) PO SCH (11:35)
[2024-03-07] MEDS: oxyCODONE HCL 5 MG TABLET PO PRN ×2 (13:39→21:45)
[2024-03-07] MEDS: clonazePAM 0.5 MG TABLET PO SCH (13:39)
[2024-03-07] MEDS: NYSTATIN 500,000 UNITS/5 ML SUSPENSION PO SCH (13:52)
[2024-03-07] MEDS ORDERED: PROTEASE PO SCH (14:00)
[2024-03-07] MEDS ORDERED: LIPASE PO SCH (14:00)
[2024-03-07] MEDS ORDERED: [UNRECOGNIZED DRUG - OTHER] PO SCH (14:00)
[2024-03-07] MEDS ORDERED: AMYLASE PO SCH (14:00)
[2024-03-07] MEDS: ATORVASTATIN CA 40 MG TABLET (FP) PO SCH (22:02)
[2024-03-07] MEDS: LOSARTAN POTASSIUM 50 MG TABLET PO SCH (22:03)
[2024-03-07] MEDS: CHLORHEXIDINE GLUCONATE 4% CLEANSER FOR DECOLONIZATION TP SCH (22:20)
[2024-03-07] MEDS: PATIENT'S OWN MEDICATION (NON-FORMULARY) (Cyclosporine [Restasis] 1 EACH) OU SCH (22:20)
[2024-03-07] MEDS: LIDOCAINE PATCH REMOVAL MC SCH (22:21)
[2024-03-07] MEDS: SENNOSIDES 8.6MG TABLET (FP) PO SCH (22:21)
[2024-03-07] MEDS: OMEGA-3 ACID ETHYL ESTERS (FATTY-ACIDS) 1 GM CAPSULE (FP) PO SCH (22:37)
[2024-03-08] MEDS: PANTOPRAZOLE 40 MG TABLET PO SCH (09:50)
[2024-03-08] MEDS: EZETIMIBE 10 MG TABLET (FP) PO SCH (09:50)
[2024-03-08] MEDS: metoPROLOL SUCCINATE 25 MG TAB.SR.24H (FP) PO SCH (09:50)
[2024-03-08] MEDS: ROFLUMILAST 500 MCG TABLET PO SCH (09:52)
[2024-03-08] MEDS: FLUTICASONE/UMECLIDIN/VILANTER(100-62.5-25 TRELEGY ELLIPTA) INAHLER IH SCH (09:53)
[2024-03-08] MEDS: ACETAMINOPHEN 500 MG TABLET (FP) PO SCH (14:27)
[2024-03-08] MEDS: SENNOSIDES 8.6MG TABLET (FP) PO SCH (21:18)
[2024-03-08] MEDS: GABAPENTIN 100 MG CAPSULE PO SCH (21:19)
[2024-03-09 07:50] LABS: BASO % 0.7 % (0-2.0); EOS % 1.9 % (0-4.5); HEMOGLOBIN 10.8 GM/dL (10.7-15.3); LYMPH % 34.6 % (8-40); MCH 29.4 pg (25.7-33.7); MCHC 33.7 g/dl (32.0-36.0); MEAN CELL VOLUME 87.1 fl (80-96); MEAN PLT VOLUME 7.8 fl (7.5-11.1); MONO % 8.6 % (3.8-10.2); NEUT % 54.2 % (42.8-82.8); PLATELET COUNT 322 10^3/uL (134-434); RBC 3.67 M/mm3 (3.60-5.2); RDW 15.4 % (11.6-15.6); WHITE BLOOD COUNT 7.5 K/mm3 (4.0-10.0)
[2024-03-09 08:00] LABS: POTASSIUM 4.9 mmol/L (3.5-5.1)
[2024-03-09 08:04] LABS: ALBUMIN 2.7 g/dl (3.4-5.0); BLOOD UREA NITROGEN 16.5 mg/dL (7-18)
[2024-03-09 08:08] LABS: BILIRUBIN,TOTAL 0.3 mg/dL (0.2-1); CREATININE 0.6 mg/dL (0.55-1.3)
[2024-03-09] MEDS: LORazepam 2 MG/ML SDV VIAL IVPUSH PRN (09:45)
[2024-03-09] MEDS: SIMETHICONE 80 MG TAB.CHEW (FP) PO SCH (10:34)
[2024-03-09 11:54] VITALS: TEMP 98
[2024-03-09 13:47] VITALS: BP 110/66; PULSE 97; RESP 15
[2024-03-09] MEDS: METHYLNALTREXONE BROMIDE 8 MG/0.4 ML SYRINGE SQ SCH (14:05)
== END 2024-03-09 18:30 | DRG 472 ==
LOC: JER 14:25 → JERBED 19:51 → J8W 21:43 → OBSVTOIN 02-29 18:07 → JICU 02-29 19:22 → J2W 03-06 14:38
PROVIDERS: ADMIT Internal Medicine; ATTEND Internal Medicine
PROC: 0RB30ZZ Excision of Cervical Vertebral Disc, Open Approach (ICD-10-PCS; 2024-02-29)
PROC: 00NW0ZZ Release Cervical Spinal Cord, Open Approach (ICD-10-PCS; 2024-02-29)
PROC: 4A11X4G Monitoring of Peripheral Nervous Electrical Activity, Intraoperative, External Approach (ICD-10-PCS; 2024-02-29)
PROC: 0RG20A0 Fusion of 2 or more Cervical Vertebral Joints with Interbody Fusion Device, Anterior Approach, Anterior Column, Open Approach (ICD-10-PCS; principal; 2024-02-29 13:00)
DX: M47.12 Other spondylosis with myelopathy, cervical region (principal); I47.29 Other ventricular tachycardia; I82.413 Acute embolism and thrombosis of femoral vein, bilateral; M48.02 Spinal stenosis, cervical region; E78.5 Hyperlipidemia, unspecified; I10 Essential (primary) hypertension; M81.0 Age-related osteoporosis without current pathological fracture; J45.909 Unspecified asthma, uncomplicated; K21.9 Gastro-esophageal reflux disease without esophagitis; G43.909 Migraine, unspecified, not intractable, without status migrainosus; F41.9 Anxiety disorder, unspecified; R26.81 Unsteadiness on feet; N32.81 Overactive bladder; R13.10 Dysphagia, unspecified; E87.6 Hypokalemia; I25.10 Atherosclerotic heart disease of native coronary artery without angina pectoris; K59.00 Constipation, unspecified
CPT/HCPCS: 36415; 71045-TC-FY; 71275-TC; 72040-TC; 74018-TC-FY; 76000-TC-FY; 80048; 80053; 81003; 82962; 83735; 84100; 84484; 85025; 85610; 85730; 86850; 86900; 86901; 87086; 87481; 87635; 93005; 93010; 93306-TC; 93970-TC; 94010; 94760; 97116-GP; 97161-GP; 99285-25; C1713; G0378; J0131; Q9967